=== PATIENT | female | born 1975 | race Caucasian/White ===

== ENCOUNTER 2016-09-01 15:49 | Emergency (ER) | payer MEDICAID ==
[~2016-09-01] VITALS: Ht 162.6 cm; Wt 103.0 kg
[2016-09-01 17:55] VITALS: BP 145/74
== END 2016-09-01 17:55 | disposition home or self-care (01) ==
LOC: ED 15:49
DX: M54.5 Low back pain (principal); E11.9 Type 2 diabetes mellitus without complications; I10 Essential (primary) hypertension; E66.01 Morbid (severe) obesity due to excess calories
CPT/HCPCS: J1885